=== PATIENT | female | born 2000 | race Caucasian/White ===

== ENCOUNTER 2019-09-28 12:59 | Emergency (ER) | payer OTHER ==
[~2019-09-28] VITALS: Ht 170.2 cm; Wt 55.9 kg
[2019-09-28] MEDS ORDERED: PREN29TA4 PO (13:07)
[2019-09-28] MEDS ORDERED: METOCLOPRAMIDE INJ 10MG/2ML VIAL (J2765) IV ONE (13:30)
[2019-09-28] MEDS ORDERED: NS 1,000 ML IV ONE (13:30)
[2019-09-28 14:02] LABS: BASO % 0.3 % (0.0-1.0); EOS # 0.1 10^3/uL (0.0-0.5); HEMATOCRIT 41.1 % (36.0-47.0); HEMOGLOBIN 13.6 g/dl (12.0-15.5); LYMPH # 1.2 10^3/uL (1.5-5.0); LYMPH % 17.1 % (24.0-44.0); MEAN CORPUSCULAR HEMOGLOBIN 30.8 pg (27.0-33.0); MEAN CORPUSCULAR HGB CONC 33.1 g/dl (32.0-36.5); MONO # 0.6 10^3/uL (0.0-0.8); MONO % 8.4 % (0.0-5.0); NEUTROPHILS # 5.1 10^3/uL (1.5-8.5); NEUTROPHILS % 72.9 % (36.0-66.0); PLATELET COUNT, AUTOMATED 173 10^3/uL (150-450); RED BLOOD COUNT 4.42 10^6/uL (4.00-5.40)
--- NOTE | 2019-09-28 15:08 | REP ---
FIRST TRIMESTER ULTRASOUND: Real-time sonographic evaluation of the gravid uterus performed and demonstrates a single living intrauterine gestation. Estimated gestational age 9 weeks based on a crown rump length of 23 mm, EDC 05/02/2020. heart rate 169 beats per minute. There is no subchorionic hemorrhage. No maternal adnexal region abnormality is seen. Electronically Signed by Darrian Leyva MD 09/29/2019 11:23 A
[2019-09-28 15:45] VITALS: BP 106/62
[2019-09-28 15:49] LABS: BLOOD UREA NITROGEN 10 MG/DL (7-18); CALCIUM LEVEL 8.7 MG/DL (8.5-10.1); CARBON DIOXIDE LEVEL 24 MEQ/L (21-32); CHLORIDE LEVEL 109 MEQ/L (98-107); GLUCOSE, FASTING 62 MG/DL (70-100); HCG, SERUM QUANTITATIVE 61517 MIU/ML; POTASSIUM SERUM 4.3 MEQ/L (3.5-5.1); SODIUM LEVEL 139 MEQ/L (136-145)
[2019-09-28] MEDS ORDERED: REGL10TA6 PO (15:56)
--- NOTE | 2019-09-28 18:52 | ECGEPIP ---
[facility] - ED Test Date: 2019-09-28 Pat Name: ADITHYA MIRAMONTES Department: Room: - Gender: Female Associate Software Engineer: ELINA : 2000 Requested By: Zeinab Skelton Order Number: [id number] Reading MD: Azeem Valdes Measurements Intervals [place] Rate: 59 P: 20 IA: 145 QRS: 81 QRSD: 92 T: 36 QT: 415 QTc: 412 Interpretive Statements SINUS BRADYCARDIA NO PRIORS FOR COMPARISON Electronically Signed on 09-28-2019 18:52:39 EST by Azeem Valdes
== END 2019-09-28 16:01 | disposition home or self-care (01) ==
LOC: M ED 12:59
DX: O26.891 Other specified pregnancy related conditions, first trimester (principal); R10.2 Pelvic and perineal pain; O21.9 Vomiting of pregnancy, unspecified; Z3A.09 9 weeks gestation of pregnancy; Z79.899 Other long term (current) drug therapy
CPT/HCPCS: 76801; 80048; 81001; 84702; 85025; 86850; 86900; 86901; 93005; 96361; 96374; 99285; J2765

== ENCOUNTER 2020-05-01 03:59 | Inpatient (IN) | payer OTHER ==
[~2020-05-01] VITALS: Ht 170.2 cm; Wt 69.1 kg
[~2020-05-01 03:59] MED LIST: PREN29TA4 PO; REGL10TA6 PO
--- NOTE | 2020-05-01 15:46 | HPE ---
DATE OF ADMISSION: 05/01/2020 19-year-old, 1, para 0, last menstrual period (LMP) 07/24/2019, estimated date of confinement (EDC) 04/29/2020, at 40 and 2 weeks of gestation with contractions 2-5 minutes apart moderate intensity. No loss of fluid or vaginal bleeding. Labs are O+, HIV negative, hepatitis negative, RPR negative, rubella immune. Varicella immune. Urine negative. 1-hour glucose was 94. GBS is negative. Gonorrhea and chlamydia are negative. Blood pressure 123/67, respirations 18, pulse 66, temperature 97.4. On examination, she appears distressed when she is having contractions. Symphysis fundus height is 40 cm. Four quadrant bowel sounds are noted. Vertex OA. On pelvic examination, 1 cm posterior, 100% effaced and -3 station. Our plan is to evaluate her in 1-2 hours' time to see if there has been progress and subsequent orders will be provided. Presently a category 1 strip and safe to proceed.
--- NOTE | 2020-05-01 15:53 | IPN ---
DATE: 05/01/2020 This a 19-year-old 1, para 0, at 40 and 2 weeks of gestation, came in with contractions moderate in intensity. Was found to be 1 cm, posterior, 100% effaced, -3 station. Her contractions petered out over the next 2-3 hours. Reevaluation, category 1 strip and her cervix had not changed. In view of that, we elected to let her go home with precautions regarding kick chart, premature rupture of membranes, bleeding and when to call the provider. The patient and expressed understanding of same. Has an appointment with Napoleon Hardin tomorrow. However, it is anticipated that she may be coming back sometime today. The patient was discharged undelivered.
== END 2020-05-01 07:30 | disposition home or self-care (01) | DRG 833 ==
LOC: M LDI 03:59
PROVIDERS: ADMIT Obstetrics & Gynecology; ATTEND Obstetrics & Gynecology
DX: O48.0 Post-term pregnancy (principal); Z3A.40 40 weeks gestation of pregnancy; O42.02 Full-term premature rupture of membranes, onset of labor within 24 hours of rupture

== ENCOUNTER 2020-05-02 07:19 | Inpatient (IN) | payer OTHER ==
[~2020-05-02] VITALS: Ht 170.2 cm; Wt 67.8 kg
[2020-05-02] VITALS (18 sets, daily range): BP systolic 97–179; BP diastolic 48–126
[2020-05-02] MEDS ORDERED: PROMETHAZINE INJ 25 MG/ML VIAL (J2550) IV PRN (09:45)
[2020-05-02] MEDS ORDERED: MORPHINE 10 MG/ML 1ML VIAL (J2270) SC ONE (09:45)
[2020-05-02] MEDS ORDERED: MORPHINE 10 MG/ML 1ML VIAL (J2270) IV ONE (09:45)
[2020-05-02] MEDS ORDERED: LR 1,000 ML IV SCH (18:02)
[2020-05-02] MEDS ORDERED: OXYTOCIN DRIP 30 UNITS in IV 1 EA IV SCH (18:15)
--- NOTE | 2020-05-02 18:20 | HPEPDOC ---
Obstetrical History & Physical General Date of Admission May 02, 2020 at 16:02 History of Present Illness 19-year-old 1 who presents at 40 weeks 4 days with complaints of contrac tion. She reports contractions throughout last night. She reports active movements. Denies any vaginal bleeding or leakage fluid. She was initially examined this morning and was found to be 2 cm dilated 100% effaced, 0 station. She was provided with therapeutic rest with morphine and Phenergan. Her contractions persist. She was reexamined and was 3-4 cm, completely efface, 0 station. Patient was offered admission with potential augmentation of labor. Chief Complaint: Contractions, term Information Provided By: Patient Age: 19 : 1 Care Care: Good Care Dating Final EDC: Apr 29, 2020 Final EDC by: LMP LMP: Jul 24, 2019 Past Medical History Past Obstetrical History : Past Obstetrical History: Primgravida Past Medical History Surgical History: Denies/None Social History Marital Status: Family situation: Spouse/partner home Psychosocial History: No pertinent psych hx * Smoker: non-smoker Alcohol: Denies Allergies Coded Allergies: No Known Allergies (Unverified , 09/28/19) Medications Scheduled Prenat 115/Iron Fum/Folic/Dss ( 19 Tablet) 1 Each Tablet, 1 TAB PO DAILY Scheduled PRN Metoclopramide HCl (Reglan) 10 Mg Tablet, 10 MG PO Q6H PRN for NAUSEA Physical Examination Physical Examination GENERAL: Alert and oriented times three. BREAST: . ABDOMEN: Gravid and non-tender to touch. FETUS: Is vertex (VTX) by sterile vaginal examination (SVE), fetus is vertex (VTX) by Vishal. HEART RATE: Regular rate and rhythm. LUNGS: Clear to auscultation (CTA). Vital Signs/I&O Vital Signs Date Time Temp Pulse Resp B/P (MAP) Pulse Ox O2 Delivery O2 Flow Rate FiO2 05/02/20 11:36 18 Laboratory Data 24H LABS Laboratory Tests 2 05/02/20 16:56: Serology Scanned Report Hepatitis B Testing Pertinent Laboratoy Data Blood Type: O+ RBC Antibody Screen: Negative Hepatitis B: Negative Rapid Plasma Reagin: Nonreactive Rubella: Immune Group B Streptococcus: Negative Anatomy Ultrasound Placenta Location: Anterior Normal Anatomy: Yes Placenta Previa: No Vaginal Examination Dilation: 3 cm Effacement: 100% Station: 0 Assessment Variability: Moderate Accelerations: Positive Tocometer Frequency: regular Assessment/Plan Assessment 19-year-old 1 at 40 weeks 4 days estimate gestational age in active labor. Reassuring status. Admit to labor and delivery, CBC, RPR, type and screen preeclamptic panel. Patient thoroughly counseled regards, induction of labor. Discussed medication as well as procedures performed labor and delivery. She is also been verbally consented for emergency surgery, blood products anesthesia desires to proceed with admission. Plan Admit and orient. Header Set Up Operator and consent. Diet: Regular. Group B Streptococcus (GBS) negative. Labs and intravenous (IV) per unit protocol. Counseled on Pitocin and induction of labor (IOL). Anticipate normal spontaneous delivery (). C-S as appropriate. ANTIONE SIMONS MD. May 02, 2020 18:20
[2020-05-02 18:41] LABS: HEMATOCRIT 42.2 % (36.0-47.0); HEMOGLOBIN 14.3 g/dl (12.0-15.5); MEAN CORPUSCULAR HEMOGLOBIN 32.1 pg (27.0-33.0); MEAN CORPUSCULAR HGB CONC 33.9 g/dl (32.0-36.5); MEAN CORPUSCULAR VOLUME 94.8 fl (80.0-96.0); PLATELET COUNT, AUTOMATED 152 10^3/uL (150-450); RED BLOOD COUNT 4.45 10^6/uL (4.00-5.40)
[2020-05-02] MEDS ORDERED: FENTANYL 2MCG/ML ROPIVACAINE 0.2% IN 0.9% NACL 100ML IVBAG As Ordered ONE (19:56)
[2020-05-02] MEDS ORDERED: ePHEDrine SULFATE 25 MG/5 ML(5MG/ML) SYRINGE IV PRN (20:45)
[2020-05-02] MEDS ORDERED: EPIDURAL COMMENT XX SCH (20:45)
[2020-05-02] MEDS ORDERED: LACTATED RINGER'S 1000 ML IV PRN (20:45)
[2020-05-02] MEDS ORDERED: FENTANYL/ROPIVACAINE/NACL BAG 100 ML EPIDURAL SCH (20:45)
[2020-05-02] MEDS ORDERED: EPIDURAL/PCA KEYS XX PRN (20:45)
[2020-05-02] MEDS ORDERED: NALOXONE INJ 0.4MG/1ML VIAL (J2310 PER 1MG) IV PRN (20:45)
[2020-05-02] MEDS ORDERED: ONDANSETRON 4MG/2ML VIAL IV PRN (20:45)
[2020-05-02] MEDS ORDERED: diphenhydrAMINE 50MG/ML VIAL (J1200) IV PRN (20:45)
[2020-05-02] MEDS ORDERED: REFRIGERATOR IV KEYS XX PRN (20:45)
[2020-05-03] VITALS (8 sets, daily range): BP systolic 96–110; BP diastolic 51–73
--- NOTE | 2020-05-03 01:14 | DNPDOC ---
[facility] Delivery Note Delivery Note DATE OF DELIVERY: 05/03/2020 TIME OF : 0028 GENDER:, Male. APGARS:, 9 and 9. WEIGHT: 2990grams or 6 pounds 9 ounces. LACERATIONS: Frst-degree midline laceration ANESTHESIA: Epidural. ESTIMATED BLOOD LOSS: 300ml COUNTS: 5 laparotomy sponges accounted for prior to after delivery. One sharps removed delivery field. DELIVERY NOTE:. On 05/03/2020 at 0028. This patient is a 19-year-old 1, now para 1, had a spontaneous vaginal delivery of viable male , Apgars, 9 and 9. Weight was 2990 g or 6 lbs. 9 oz. Head was delivered occiput anterior (OA), followed by delivery of the shoulders and corpus. Infant was handed to mom with a good cry. Cord was clamped times two and was cut by the father of baby under my direction. Placenta was then drained and delivered grossly intact. A premixed bag of 500 mL of normal saline with 30 units of Pitocin was then bolused along with uterine massage until the uterus was firm. On inspection,. There was a first-degree midline laceration which was repaired with 3-0 Vicryl. On reinspection, cervix, vagina, perineum was grossly intact and hemostatic. Mom and baby in recovery on stable condition. The couples decided to remain in son , ANTIONE Dudley MD. May 03, 2020 01:14
[2020-05-03] MEDS ORDERED: OXYTOCIN DRIP 30 UNITS in IV 1 EA IV SCH (01:43)
[2020-05-03] MEDS ORDERED: DIBUCAINE 1% OINTMENT 30GM TOP PRN (01:45)
[2020-05-03] MEDS ORDERED: RHOGAM 300 MCG (1500 IU) INJ (J2790) IM SCH (01:45)
[2020-05-03] MEDS ORDERED: DOCUSATE SODIUM 100MG CAPSULE PO PRN (01:45)
[2020-05-03] MEDS ORDERED: MEASLES,MUMPS,RUBELLA VACCINE INJ (MMR-II) (90707) SC SCH (01:45)
[2020-05-03] MEDS ORDERED: METHYLERGONOVINE MALEATE 0.2 MG TAB PO PRN (01:45)
[2020-05-03] MEDS: ACETAMINOPHEN 500 MG TAB PO PRN ×3 (03:59→21:35)
[2020-05-03] MEDS: IBUPROFEN 800 MG TAB PO PRN ×2 (09:52→15:56)
[2020-05-03] MEDS: PRENATAL VITAMINS CHEWABLE TABLET PO SCH (09:53)
[2020-05-03] MEDS ORDERED: diphenhydrAMINE 25MG CAP PO ONE (21:00)
[2020-05-04] MEDS: IBUPROFEN 800 MG TAB PO PRN (05:10)
[2020-05-04 06:00] VITALS: BP 119/78
--- NOTE | 2020-05-04 07:26 | IPNPDOC ---
Progress Note Date of Service: May 04, 2020 Day#: 1 Progress Note SUBJECT: Jennifer is 19yo G1 now P1001 s/p uncomplicated at 0028 on [id number] of male , 2990g, 6lbs 9oz with 1st degree midline laceration; doing well PP Day #1. She has been ambulating, voiding spontaneously without issue and tolerating regular diet. Pumping and , having some concerns. OBJECTIVE: VITAL SIGNS: Within normal limits, afebrile. Alert and oriented times three. Abdomen: Fundus firm at U-2. Soft, NTTP. No leg/calf tenderness. Scant lochia. ASSESSMENT: PP Day #1, normal involution, stable and doing well with no evidence of infection. and pumping, but having concerns. PLAN: 1. Discharge to home on PP Day #2 (or today if infant can be discharged). 2. Tylenol and Motrin for pain. 3. Encourage breast feeding and ambulation. Recommend f/u with . 4. Routine PP care VS, I&O, 24H, Fishbone Vital Signs/I&O Vital Signs Date Time Temp Pulse Resp B/P (MAP) Pulse Ox O2 Delivery O2 Flow Rate FiO2 05/04/20 06:00 98.4 71 16 119/78 (92) 05/03/20 18:00 100 Room Air CLARITA MICHEL CNM May 04, 2020 07:26
[2020-05-04] MEDS: PRENATAL VITAMINS CHEWABLE TABLET PO SCH (08:33)
[2020-05-04] MEDS: ACETAMINOPHEN 500 MG TAB PO PRN (15:05)
[2020-05-04 18:00] VITALS: BP 116/69
--- NOTE | 2020-05-04 18:12 | OBDS ---
[facility] Obstetrical Discharge Sum. Obstetrical Discharge Summary Date: May 04, 2020 : 1 Term: 1 Pre-term: 0 Abortions: 0 Livin VDRL: Non-Reactive Rh: Positive Rubella: Immune Sex: Male Infant Weight: grams (2990) Anesthesia: Regional Anesthesia A/P, Post Course List any complications Admission diagnosis: Gravid at 40+4wks and labor Discharge diagnosis: Condition at Discharge: stable Discharge Instructions: Home Activity: as tolerated, pelvic rest Diet: regular Medications: filled at [facility] Follow-up: call OB clinic for 6-8wks appointment Hospital course: Patient admitted in labor at term. She progressed to have a spontaneous vaginal delivery. course uncomplicated and she was discharged on day #1. DEE DEE JIMENEZ DO May 04, 2020 18:12
--- NOTE | 2020-05-05 14:56 | IPN ---
DATE: 05/05/2020 This patient and requested circumcision of their male . With a laborer drying department in effect because the patient only speaks Pashto, we reviewed the medical and nonmedical indications, penile block, and aftercare of the circumcision. The patient expressed understanding of penile block, aftercare, and bleeding, signed the consent form. All questions were answered. A 20-minute discussion. Upon calling on the baby for procedure, mother suddenly changed her mind and declined to have the baby circumcised.
== END 2020-05-04 19:45 | disposition home or self-care (01) | DRG 807 ==
LOC: M LDO 07:19 → M LDI 16:02 → M OBS 05-03 02:45
PROVIDERS: ADMIT Obstetrics & Gynecology; ATTEND Obstetrics & Gynecology
PROC: 10E0XZZ Delivery of Products of Conception, External Approach (ICD-10-PCS; principal; 2020-05-03)
PROC: 0HQ9XZZ Repair Perineum Skin, External Approach (ICD-10-PCS; 2020-05-03)
DX: O48.0 Post-term pregnancy (principal); Z37.0 Single live birth; Z3A.40 40 weeks gestation of pregnancy; O70.0 First degree perineal laceration during delivery

== ENCOUNTER 2020-05-12 09:27 | Emergency (ER) | payer OTHER ==
[~2020-05-12] VITALS: Ht 170.2 cm; Wt 63.2 kg
[2020-05-12] MEDS ORDERED: IBUP200C28 PO (09:40)
[2020-05-12] MEDS ORDERED: ACETAMINOPHEN 325 MG TAB PO ONE (10:15)
[2020-05-12 10:47] LABS: BASO % 0.2 % (0.0-1.0); EOS % 0.2 % (0.0-3.0); HEMATOCRIT 42.2 % (36.0-47.0); HEMOGLOBIN 14.3 g/dl (12.0-15.5); LYMPH # 0.8 10^3/uL (1.5-5.0); LYMPH % 6.3 % (24.0-44.0); MEAN CORPUSCULAR HEMOGLOBIN 32.1 pg (27.0-33.0); MEAN CORPUSCULAR HGB CONC 33.9 g/dl (32.0-36.5); MEAN CORPUSCULAR VOLUME 94.6 fl (80.0-96.0); MONO # 0.7 10^3/uL (0.0-0.8); MONO % 5.9 % (0.0-5.0); NEUTROPHILS # 10.4 10^3/uL (1.5-8.5); NEUTROPHILS % 86.9 % (36.0-66.0); PLATELET COUNT, AUTOMATED 206 10^3/uL (150-450); RED BLOOD COUNT 4.46 10^6/uL (4.00-5.40); WHITE BLOOD COUNT 11.9 10^3/uL (4.0-10.0)
[2020-05-12 11:08] LABS: ALBUMIN 3.3 GM/DL (3.2-5.2); ALT/SGPT 31 U/L (12-78); BILIRUBIN,TOTAL 0.3 MG/DL (0.2-1.0); BLOOD UREA NITROGEN 19 MG/DL (7-18); CALCIUM LEVEL 9.3 MG/DL (8.5-10.1); CARBON DIOXIDE LEVEL 22 MEQ/L (21-32); CHLORIDE LEVEL 109 MEQ/L (98-107); CREATININE FOR GFR 1.04 MG/DL (0.55-1.30); GLUCOSE, FASTING 83 MG/DL (70-100); POTASSIUM SERUM 4.1 MEQ/L (3.5-5.1); SODIUM LEVEL 142 MEQ/L (136-145); TOTAL PROTEIN 7.6 GM/DL (6.4-8.2)
--- NOTE | 2020-05-12 11:21 | REP ---
Clinical: fever and pelvic pain. Technique: Transabdominal pelvic ultrasound with color Doppler evaluation of the ovaries. Findings: Bladder is normal and measures 11.1 x 6.7 x 5.2 cm. Normal anteverted uterus measures 11.9 x 6.2 x 9.6 cm. Endometrial complex measures approximately 28 mm thickness without evidence for increased vascularity, endocervical fluid, or obvious retained products of conception. The bilateral ovaries are normal in appearance and vascularity without torsion. Right ovary measures 3.1 x 2.9 x 1.5 cm (RI 0.66). Left ovary measures 3.3 x 2.5 x 3.0 cm (RI 0.57). No pelvic fluid or adnexal mass lesion. Impression: 1. Relatively normal appearance to the uterus. No endocervical fluid/debris or increased vascularity to definitively suggest retained products of conception. Electronically Signed by Checo Singh MD 05/12/2020 11:12 A
[2020-05-12] MEDS ORDERED: KEFL500C17 PO (11:29)
[2020-05-12 11:38] VITALS: BP 119/67
== END 2020-05-12 11:51 | disposition home or self-care (01) ==
LOC: M ED 09:27
DX: N39.0 Urinary tract infection, site not specified (principal); R50.9 Fever, unspecified; R51 Headache; M54.9 Dorsalgia, unspecified